=== PATIENT | male | born 1995 | race African-American/Black ===

== ENCOUNTER 2021-02-19 23:35 | Emergency (ER) | payer MEDICAID ==
[~2021-02-19] VITALS: Ht 188 cm; Wt 70.8 kg
[2021-02-20] MEDS ORDERED: LIDOCAINE HCL/PF 1% 10 MG/ML 5ML VIAL INFIL ONE (01:15)
[2021-02-20] MEDS ORDERED: TOPUD PO (02:03)
[2021-02-20 05:49] VITALS: BP 129/73
== END 2021-02-20 05:51 | disposition home or self-care (01) ==
LOC: ER 23:35
DX: S01.81XA Laceration without foreign body of other part of head, initial encounter (principal); S43.085A Other dislocation of left shoulder joint, initial encounter; F12.10 Cannabis abuse, uncomplicated; Y08.89XA Assault by other specified means, initial encounter; Y93.89 Activity, other specified; Y92.89 Other specified places as the place of occurrence of the external cause; Y99.8 Other external cause status
CPT/HCPCS: 12011; 70486; 73030; 99284; J3490; Z7610

== ENCOUNTER 2024-07-02 07:39 | Emergency (ER) | payer MEDICAID, OTHER ==
[~2024-07-02] VITALS: Ht 182.9 cm; Wt 65.7 kg
[~2024-07-02 07:39] MED LIST: TOPUD PO
[2024-07-02 08:04] VITALS: BP 116/75; O2SAT 100
[2024-07-02] MEDS: ONDANSETRON 4MG ODT PO ONE (09:36)
[2024-07-02 11:26] VITALS: PULSE 91; RESP 16; TEMP 36.61404; O2SAT 100
== END 2024-07-02 11:27 | disposition home or self-care (01) ==
LOC: ER 07:39
DX: R00.2 Palpitations (principal); R06.02 Shortness of breath; F12.90 Cannabis use, unspecified, uncomplicated; Z88.0 Allergy status to penicillin
CPT/HCPCS: 99283; 71045; 93005; Q0162

== ENCOUNTER 2025-04-24 10:47 | Emergency (ER) | payer MEDICAID, OTHER ==
[~2025-04-24] VITALS: Ht 185.4 cm; Wt 68.0 kg
[2025-04-24 10:59] VITALS: O2SAT 100
[2025-04-24 11:31] VITALS: BP 128/77; PULSE 78; RESP 16; TEMP 37.1; O2SAT 100
== END 2025-04-24 11:32 | disposition home or self-care (01) ==
LOC: ER 10:47
DX: M54.9 Dorsalgia, unspecified (principal); F12.90 Cannabis use, unspecified, uncomplicated; I10 Essential (primary) hypertension; Z88.0 Allergy status to penicillin
CPT/HCPCS: 99282